=== PATIENT | female | born 1950 | race Caucasian/White ===

== ENCOUNTER → 2019-03-25 | Outpatient (REF) | payer MEDICARE ==
[~2019-03-25] MED LIST: ACET-1966 PO; ASPI-757 PO; IBUP-136 PO; LEVO50TA86 PO; LEVO75TA73 PO; cholesterol med; synthroid
[2019-03-25 12:30] LABS: PLATELET COUNT, AUTOMATED 231 K/uL (150-450)
== END ==
PROVIDERS: ATTEND Nurse Practitioner Family
DX: M54.89 Other dorsalgia (principal)
CPT/HCPCS: 82040; 82247; 82310; 82374; 82435; 82565; 82947; 84075; 84132; 84155; 84295; 84450; 84460; 84520; 85025